=== PATIENT | female | born 1955 | race Caucasian/White ===

== ENCOUNTER 2020-02-20 22:27 | Emergency (ER) | payer OTHER, MEDICARE ==
[2020-02-20] MEDS ORDERED: DEXAMETHASONE SOD PHOS INJ 10 MG/1 ML VIAL IM ONE (23:30)
--- NOTE | 2020-02-20 23:36 | ER Document Report ---
ED General - General Chief Complaint: Facial Swelling Stated Complaint: THROAT PAIN Time Seen by Provider: 02/20/20 23:18 Primary Care Provider: [facility] [Provider Group] - Follow up as needed - HPI Notes: Patient is a 64 y/o female with a hx of an autoimmune disorder and chronic urticaria who presents with right facial swelling and pain that began last night. Patient reports pain to her right face that spreads to her ear, down her neck to her right arm. She denies fever, chest pain, shortness of breath and abdominal pain. Patient reports a cut in her right ear a few days ago. Patient states this is unlike her chronic urticaria and denies any itchiness. Patient has not taken any medication for relief. - Related Data Allergies/Adverse Reactions: sumatriptan [From Imitrex] Allergy (Verified 02/20/20 23:35) triamcinolone Allergy (Verified 02/20/20 23:35) Past Medical History - General Information source: Patient - Social History Smoking Status: Never Smoker Family History: Reviewed & Not Pertinent Review of Systems - Review of Systems Constitutional: No symptoms reported EENT: No symptoms reported Cardiovascular: No symptoms reported Respiratory: No symptoms reported Gastrointestinal: No symptoms reported Genitourinary: No symptoms reported Female Genitourinary: No symptoms reported Musculoskeletal: No symptoms reported Skin: See HPI Hematologic/Lymphatic: No symptoms reported Neurological/Psychological: No symptoms reported Physical Exam - Vital signs Vitals: Temp Pulse Resp BP Pulse Ox 98.4 F 88 16 141/73 H 100 02/20/20 22:43 02/20/20 22:43 02/20/20 22:43 02/20/20 22:43 02/20/20 22:43 - Notes Notes: PHYSICAL EXAMINATION: VITALS: Vitals reviewed and within normal limits. GENERAL: Well-appearing, well-nourished and in no acute distress. HEAD: Right facial swelling and redness to the right cheek extending to the right ear. Tender to the touch. No orbital involvement. EYES: Pupils equal, round, and reactive to light, extraocular movements intact, sclera anicteric, conjunctiva are normal. ENT: Nares patent. Moist mucous membranes. Oropharynx clear without exudates. Erythematous right EAC. Bilateral TMs clear. NECK: Normal range of motion, supple without lymphadenopathy. LUNGS: Breath sounds clear to auscultation bilaterally and equal. No wheezes, rales, or rhonchi. HEART: Regular, rate, and rhythm without murmurs. ABDOMEN: Soft, nontender, normoactive bowel sounds. No guarding, no rebound. No masses appreciated. EXTREMITIES: Normal range of motion, no pitting or edema. No cyanosis. NEUROLOGICAL: No focal neurological deficits. Moves all extremities spontaneously and on command. PSYCH: Normal mood, normal affect. SKIN: Warm, Dry, normal turgor, no rashes or lesions noted. Course - Re-evaluation Re-evalutation: Patient is a 64 y/o female with a hx of autoimmune disorder and chronic urticaria who presents with right facial swelling and pain that began one day ago. Vital signs are stable and within normal limits. On exam, right facial swelling and redness to the right cheek extending to the right ear that is tend er to the touch. 10mg IM decadron given with minimal improvement. I consulted my supervising physician, Dr. Kat, concerning the patient and he came and evaluated the patient. Due to her tenderness with no pruritus, he recommended placing the patient on antibiotics for potential cellulitis. Patient given a dose of clindamycin 450mg PO here in the ED and given a prescription for 10 days. Return precautions and follow-up instructions given. Patient will be discharged home. Patient understands and is in agreement with the plan. - Vital Signs Vital signs: Temp Pulse Resp BP Pulse Ox 98.4 F 88 16 141/73 H 100 02/20/20 22:43 02/20/20 22:43 02/20/20 22:43 02/20/20 22:43 02/20/20 22:43 - Laboratory Results Critical Laboratory Results Reviewed: No Critical Results - Radiology Results Critical Radiology Results Reviewed: No Critical Results Discharge - Discharge Clinical Impression: Facial swelling Condition: Stable Disposition: HOME, SELF-CARE Instructions: Cellulitis ([facility]), Clindamycin ([facility]) Prescriptions: Clindamycin HCl [Cleocin 150 mg Capsule] 450 mg PO TID 10 Days #90 capsule Hydrocodone/Acetaminophen [[place] 5-325 mg Tablet] 1 - 2 tab PO Q6 PRN #12 tablet PRN Reason: Referrals: [facility] [Provider Group] - Follow up as needed
[2020-02-21] MEDS ORDERED: HYDROCODONE/ACETAMINOPHEN 5-325 MG (6 TAB/ER DISP) PO PRN (00:43)
[2020-02-21] MEDS ORDERED: CLINDAMYCIN HCL 150 MG CAPSULE PO ONE (00:43)
[2020-02-21 01:15] VITALS: BP 127/62
== END 2020-02-21 01:15 | disposition home or self-care (01) ==
LOC: ER 22:27
DX: R22.0 Localized swelling, mass and lump, head (principal); D89.89 Other specified disorders involving the immune mechanism, not elsewhere classified
CPT/HCPCS: 99284; 96372; J1100